=== PATIENT | female | born 1950 | race Caucasian/White ===

== ENCOUNTER → 2017-07-14 | Outpatient (REF) | payer BC, MEDICARE | LOC: M LAB REF 13:23 | DX: N39.0 Urinary tract infection, site not specified (principal) | CPT/HCPCS: 87186 ==

== ENCOUNTER → 2017-09-04 | Outpatient (REF) | payer MEDICARE, BC ==
[2017-09-04 14:27] LABS: VITAMIN B12 LEVEL 290 PG/ML
[2017-09-04 14:38] LABS: FERRITIN 189 NG/ML (8-252); IRON (FE) 64 UG/DL (50-170); PERCENT SATURATION 21.7 % (13.2-45.0); TOTAL IRON BINDING CAPACITY 295 UG/DL (250-450); TOTAL PROTEIN 7.8 GM/DL (6.4-8.2)
[2017-09-04 15:04] LABS: SLIDE REVIEW Report; SOURCE PERIPHERAL SMEAR
[2017-09-04 15:05] LABS: REASON FOR REVIEW ANEMIA / RBC MORPH
[2017-09-04 15:48] LABS: ERYTHROCYTE SEDIMENTATION RATE 79 mm/hr (0-30)
[2017-09-06 13:04] LABS: ALBUMIN 3.96 GM/DL (3.29-5.55); ALBUMIN % 50.8 % (55.8-66.1); ALPHA-1-GLOBULINS 0.39 GM/DL (0.17-0.41); ALPHA-2-GLOBULINS 0.81 GM/DL (0.42-0.99); ALPHA-2-GLOBULINS % 10.4 % (7.1-11.8); BETA-1-GLOBULINS 0.52 GM/DL (0.28-0.60); BETA-1-GLOBULINS % 6.7 % (4.7-7.2); BETA-2-GLOBULINS 0.55 GM/DL (0.19-0.55); BETA-2-GLOBULINS % 7.1 % (3.2-6.5); GAMMA GLOBULINS 1.56 GM/DL (0.65-1.58)
[2017-09-07 08:11] LABS: ANTINUCLEAR ANTIBODIES DIRECT Negative (Negative)
[2017-09-07 08:11] LABS: HAPTOGLOBIN 185 mg/dL (34-200)
== END ==
LOC: M LAB REF 13:38
DX: D64.9 Anemia, unspecified (principal); D69.6 Thrombocytopenia, unspecified
CPT/HCPCS: 82746

== ENCOUNTER 2017-10-26 10:59 | Day surgery (SDC) | payer MEDICARE, BC ==
[2017-10-26] MEDS: NS 1,000 ML IV (11:00)
[2017-10-26] MEDS ORDERED: PROPOFOL 200 MG/20 ML VIAL As Ordered ×2 (11:31→12:32)
== END 2017-10-26 13:28 | disposition home or self-care (01) ==
LOC: M OPP 10:59
DX: D50.9 Iron deficiency anemia, unspecified (principal); K62.5 Hemorrhage of anus and rectum; D12.5 Benign neoplasm of sigmoid colon; K64.8 Other hemorrhoids; K57.30 Diverticulosis of large intestine without perforation or abscess without bleeding; K63.89 Other specified diseases of intestine; E78.5 Hyperlipidemia, unspecified; E11.9 Type 2 diabetes mellitus without complications; E03.9 Hypothyroidism, unspecified; K57.32 Diverticulitis of large intestine without perforation or abscess without bleeding; R06.83 Snoring; N18.9 Chronic kidney disease, unspecified; Z85.42 Personal history of malignant neoplasm of other parts of uterus; F17.210 Nicotine dependence, cigarettes, uncomplicated; Z79.4 Long term (current) use of insulin; Z79.899 Other long term (current) drug therapy; Z80.42 Family history of malignant neoplasm of prostate; Z80.1 Family history of malignant neoplasm of trachea, bronchus and lung; Z80.52 Family history of malignant neoplasm of bladder
CPT/HCPCS: 45385

== ENCOUNTER → 2018-11-02 | Outpatient (CLI) | payer MEDICARE, BC ==
[~2018-11-02] MED LIST: APIDINJ2 SC; B-12100021 PO; GLIP5TAB20 PO; JANU100T PO; KLOR20TA42 PO; LANTINJ4 SC; LEVO25TA5 PO; LISI10TA4 PO; METF-839 PO; NICO21DI9 TOP; PIOG1TAB36 PO; SIMV10TA2 PO; TOPA1TAB PO; TRUL10IN SC; UROCTAB3 PO; VALT500T PO
--- NOTE | 2018-11-02 09:03 | REP ---
Complete abdominal sonography: History: Abdominal bloating. Anemia. Increased alkaline phosphatase. Findings: Scanning through the abdomen demonstrates multiple echogenic foci along the posterior wall of the gallbladder without evidence of shadowing or mobility. These may be polyps or small stones. Gallbladder wall is not thickened. The gallbladder is somewhat elongate measuring 9.7 cm in greatest diameter consistent with mild dilation. No pericholecystic fluid is seen. The common bile duct is normal measuring 0.5 cm in greatest diameter. There is evidence of some fatty infiltration of the liver with areas of fat sparing near the gallbladder. The liver has a 18 cm vertical midclavicular span consistent with mild hepatomegaly. No focal liver lesion is seen. Limited views of the pancreas show no abnormality. There is a splenule in the left upper quadrant measuring 1.4 cm in greatest diameter. The spleen is not enlarged measuring 8.1 cm. It is homogeneous. Renal cortical echogenicity pattern is normal and contours are smooth bilaterally. 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 No other renal abnormality. Right kidney measures 10.9 x 5.7 x 5.5 cm. Left renal dimensions are 10.1 x 4.4 x 4.7 cm. There is a distal aortic aneurysm measuring 3.4 cm in anteroposterior dimension just above the bifurcation. The remainder the aorta is normal in caliber. Impression: 1. Small stones versus polyps in the gallbladder. Mildly dilated gallbladder. 2. Fatty infiltration. Mild hepatomegaly. 3. Small splenule in the left upper quadrant. 4. 3.4 cm infrarenal abdominal aortic aneurysm. Electronically Signed by Dmitriy Callaway MD 11/02/2018 02:45 P
== END ==
LOC: M RAD 07:11
PROVIDERS: ATTEND Internal Medicine Hematology & Oncology
DX: K80.20 Calculus of gallbladder without cholecystitis without obstruction (principal); K76.0 Fatty (change of) liver, not elsewhere classified; I71.4 Abdominal aortic aneurysm, without rupture; R14.0 Abdominal distension (gaseous)

== ENCOUNTER 2018-11-03 10:50 | Inpatient (IN) | payer MEDICARE, BC ==
[~2018-11-03] VITALS: Ht 160 cm; Wt 69.8 kg
[~2018-11-03 10:50] MED LIST changes: -APIDINJ2 SC; -LANTINJ4 SC
[2018-11-03 11:58] LABS: BASO # 0.1 10^3/uL (0.0-0.2); BASO % 0.6 % (0.0-1.0); EOS # 0.2 10^3/uL (0.0-0.50); EOS % 1.7 % (0.0-3.0); HEMATOCRIT 36.4 % (36.0-47.0); HEMOGLOBIN 11.9 g/dl (12.0-15.5); LYMPH # 4.1 10^3/uL (1.5-4.5); LYMPH % 46.3 % (24.0-44.0); MEAN CORPUSCULAR HEMOGLOBIN 34.5 pg (27.0-33.0); MEAN CORPUSCULAR HGB CONC 32.7 g/dl (32.0-36.5); MEAN CORPUSCULAR VOLUME 105.5 fl (80.0-96.0); MONO # 0.5 10^3/uL (0.0-0.8); MONO % 5.7 % (0.0-5.0); NEUTROPHILS % 45.4 % (36.0-66.0); PLATELET COUNT, AUTOMATED 154 10^3/uL (150-450); RED BLOOD COUNT 3.45 10^6/uL (4.00-5.40); WHITE BLOOD COUNT 8.8 10^3/uL (4.0-10.0)
[2018-11-03 12:19] LABS: ALBUMIN 3.6 GM/DL (3.2-5.2); ALT/SGPT 43 U/L (12-78); BILIRUBIN,DIRECT 0.1 MG/DL (0.0-0.2); BILIRUBIN,TOTAL 0.4 MG/DL (0.2-1.0); BLOOD UREA NITROGEN 17 MG/DL (7-18); CALCIUM LEVEL 9.3 MG/DL (8.8-10.2); CARBON DIOXIDE LEVEL 28 MEQ/L (21-32); CHLORIDE LEVEL 104 MEQ/L (98-107); CREATININE FOR GFR 0.85 MG/DL (0.55-1.30); GLOMERULAR FILTRATION RATE > 60.0 (>45); GLUCOSE, FASTING 175 MG/DL (70-100); LIPASE 1049 U/L (73-393); POTASSIUM SERUM 4.2 MEQ/L (3.5-5.1); SODIUM LEVEL 138 MEQ/L (136-145); TOTAL PROTEIN 8.1 GM/DL (6.4-8.2)
[2018-11-03] MEDS ORDERED: ISOVUE-370 76% 100ML VIAL (Q9967) As Ordered ONE (12:25)
--- NOTE | 2018-11-03 14:11 | REP ---
CT ABDOMEN AND PELVIS WITH IV BUT WITHOUT ORAL CONTRAST: HISTORY: Left upper quadrant abdominal pain. Evaluate for pancreatitis. CT CONTRAST DOSE: 100 mL of intravenous Isovue 370. CT FINDINGS: Preliminary digital backend java developer radiograph shows an unremarkable bowel gas pattern. The lung bases show calcific pleural plaquing bilaterally consistent with previous asbestos exposure. Lung bases are otherwise clear. There is mild diffuse fatty infiltration of the liver. The liver is felt to be mildly enlarged as well. Its craniocaudal span in the midclavicular line is 22 cm. No focal hepatic lesion is seen. There are two tiny faintly calcific opacities in the dependent portion of the gallbladder consistent with gallstones. No other gallbladder abnormality is seen. No adrenal lesion is seen. The spleen is unremarkable. There is an accessory splenule inferiorly. No pancreatic mass or cyst is seen. The main pancreatic duct is slightly prominent measuring 4 mm in greatest diameter. There is bilateral infrarenal nephrolithiasis. No hydronephrosis is seen. The largest intrarenal calculus is in the upper pole of the right kidney measuring 4 mm in greatest diameter. There is an infrarenal abdominal aortic aneurysm, which measures about 3.3 cm in greatest anteroposterior dimension. No vicky aneurysmal fibrosis or hemorrhage is seen. There is extensive diverticulosis affecting the sigmoid colon without CT evidence of diverticulitis. Moderate stool is visible throughout the colon. There is a diverticulum in the right colon. The appendix is surgically absent. The uterus is surgically absent. Urinary bladder is unremarkable. No abdominal wall defect is seen. IMPRESSION: 1. Hepatomegaly and fatty infiltration of the liver. 2. Tiny gallstones suspected. 3. Mildly prominent pancreatic duct. Otherwise unremarkable pancreas. 4. Infrarenal abdominal aortic aneurysm, 3.3 cm in AP dimension. 5. Bilateral intrarenal nephrolithiasis without hydronephrosis. 6. Left colonic diverticulosis without diverticulitis. Electronically Signed by Dmitriy Callaway MD 11/03/2018 03:31 P
[2018-11-03] MEDS ORDERED: ONDANSETRON 4MG/2ML VIAL (J2405) IV ONE (14:30)
[2018-11-03] MEDS ORDERED: MORPHINE 2 MG/ML 1ML SYRINGE (J2270) IV ONE (14:30)
[2018-11-03] MEDS ORDERED: LANTINJ4 SC (15:09)
[2018-11-03] MEDS ORDERED: APIDINJ2 SC (15:09)
[2018-11-03 15:38] LABS: CHOLESTEROL LEVEL 191 MG/DL (<200); HDL CHOLESTEROL 57 MG/DL (>40); LDL CHOLESTEROL 94 MG/DL (<100); NON-HDL-C 134 MG/DL; TRIGLYCERIDES LEVEL 199 MG/DL (<150)
[2018-11-03] MEDS ORDERED: TOPIRAMATE (TopAMAX) 25 MG TAB PO PRN (15:45)
[2018-11-03] MEDS ORDERED: DEXTROSE 50% 50 ML SYRINGE IV PRN (15:45)
[2018-11-03] MEDS ORDERED: MORPHINE 4 MG/ML 1ML VIAL/SYRINGE (J2270) IV PRN (15:45)
[2018-11-03] MEDS ORDERED: GLUCAGON FOR INJ 1 MG VIAL (J1610) SC PRN (15:45)
[2018-11-03] MEDS ORDERED: GLUCOSE 4 GM CHEW TABLET PO PRN (15:45)
[2018-11-03] MEDS ORDERED: ONDANSETRON 4MG/2ML VIAL (J2405) IV PRN (16:15)
[2018-11-03 17:37] VITALS: BP 120/67
[2018-11-03] MEDS: HumaLOG INSULIN (NovoLOG) PER UNIT SC SCH ×2 (18:00→23:43)
[2018-11-03] MEDS: NS 1,000 ML IV SCH (18:00)
--- NOTE | 2018-11-03 18:06 | HPE ---
DATE OF ADMISSION: 11/03/2018 PRIMARY CARE PROVIDER: Dr. Carmen Borges HISTORY OF PRESENT ILLNESS: This patient is a 68-year-old female with a past medical history significant for diabetes, dyslipidemia, hypertension, history of diverticulitis, anemia with thrombocytopenia, presented to [facility] on November 03, 2018 with complaint of abdominal pain. The patient had a history of pancreatis. The patient was hospitalized in [facility] from October 09 to October 16. The patient had a endoscopic retrograde cholangiopancreatography (ERCP) performed at that time and the patient was told that there was no significant findings. Later, the patient signed herself against medical advice (AMA) because she could not get the HIDA scan done in a timely fashion. She went to [facility] to get the HIDA scan performed; and according to the patient, the patient has an obstruction of the cystic duct. The patient was later referred to Dr. Aguirre for elective cholecystectomy. The patient started having the abdominal pain in the mid epigastric region. Pain is aching and sharp in nature, persistent with radiation to the back. The patient has had poor oral intake due to poor appetite and the persistent pain. Denies any significant alcohol history. The patient did have a recent adjustment of her diabetic medications. According to the patient, the adjustments were made to avoid recurrence of the pancreatitis. In the emergency room, the patient was found to have elevated lipase level. PAST MEDICAL HISTORY: 1. Insulin-dependent diabetes. 2. Dyslipidemia. 3. Hypertension. 4. History of diverticulitis. 5. Anemia with thrombocytopenia. 6. History of endometrial cancer, status post hysterectomy. PAST SURGICAL HISTORY: 1. Appendectomy in 1970s. 2. Total hysterectomy for history of endometrial cancer. 3. Tubal ligation. ALLERGIES: None. SOCIAL HISTORY: The patient quit smoking in October 09. Drinks alcohol very rarely. Denied recreational drug use. REVIEW OF SYSTEMS: GENERAL: No fever, no chills. HEENT: No vision changes. No auditory changes. CARDIOVASCULAR: Denied any chest pain or palpitations. RESPIRATORY: Denied any shortness of breath, wheezes or sputum production. GASTROINTESTINAL (GI): Acute dull achy type of abdominal pain with radiation to the back that started yesterday night. The patient has a history of pancreatitis in the past. MUSCULOSKELETAL: Denied any muscle pain or joint pain. NEUROLOGICAL: Denied any numbness or tingling. OBJECTIVE: VITAL SIGNS: Temperature is 97.4, pulse is 92, respirations 20, blood pressure 122/74, pulse oximetry 96% on room air. GENERAL: Mild distress, fatigue, alert and awake. HEENT: Normocephalic, atraumatic. Extraocular motor grossly intact. CARDIOVASCULAR: Positive S1, S2, regular rate. LUNGS: Clear to auscultation bilaterally. ABDOMEN: Decreased bowel sounds. Tenderness to palpation in the mid epigastric region and left upper abdomen. No rebound. EXTREMITIES: No edema. NEUROLOGICAL: Sensation to fine touch grossly intact. Muscle strength 5/5. LABORATORY DATA: White blood count (WBC) 8.8, hemoglobin 11.9, hematocrit 36.4, platelet count is 154. Sodium is 138, potassium 4.2, chloride 104, carbon dioxide 24, BUN 17, creatinine 0.85, glomerular filtration rate (GFR) greater than 65, fasting glucose 175, lactic acid 1.6, calcium 9.3, total bilirubin is 0.4, direct bilirubin is 0.1. AST 29, ALT 43, alkaline phosphatase of 179. Total protein is 8.1, albumin 3.6. IMAGING STUDY: Abdominal ultrasound from November 02, 2018 demonstrates a small stone versus polyp in the gallbladder. Mildly dilated gallbladder. Fatty infiltrate. Mild hepatomegaly. Small splenule in the left upper quadrant. 3.4 cm infrarenal abdominal aortic aneurysm. CT abdomen and pelvis with IV contrast on November 03, 2018 showed hepatomegaly with fatty infiltrate of the liver. Tiny gallstone suspected. Mildly prominent pancreatic duct. Infrarenal abdominal aortic aneurysm, 3.3 cm in AP diameter. Bilateral intrarenal nephrolithiasis without hydronephrosis. Left colonic diverticulosis without diverticulitis. ASSESSMENT AND PLAN: 1. Recurrent pancreatitis. The patient admitted on the medical surgical floor on the inpatient status. The patient was placed on by mouth instead of IV fluid. The patient will be on IV morphine for pain control. The patient denies any significant alcohol history. Follow with the lipid profile. CT abdomen and the pelvis and abdominal ultrasound performed, the patient was found to have gallstones. The patient had a recent endoscopic retrograde cholangiopancreatography (ERCP) performed in the [facility]. According to the patient, there are no significant findings. The patient also had a HIDA scan performed in the [facility]. The patient was informed there is a blockage in the cystic duct. The patient originally had a cholecystectomy with Dr. Aguirre on December 03, 2017. 2. Diabetes on fluid support by mouth, sliding scale. 3. Dyslipidemia. Follow with lipid panel on Zocor. 4. Hypothyroidism on Synthroid. Follow with thyroid simulating hormone (TSH). 5. Hypertension. Blood pressure in the satisfactory range on lisinopril. 6. History of diverticulitis. CT image was performed. The patient was found to have left colonic diverticulosis without diverticulitis. 7. History of endometrial cancer, status post total hysterectomy. 8. Anemia with thrombocytopenia. The patient is being followed with Dr. Rebollar in the outpatient setting. 9. Deep vein thrombosis (DVT) prophylaxis on heparin.
[2018-11-03] MEDS: HEPARIN SOD (PORCINE) 5000 UNITS/ML VIAL SC SCH ×2 (18:59→21:37)
[2018-11-03] MEDS: SIMVASTATIN 10 MG TAB PO SCH (21:37)
[2018-11-03 22:00] VITALS: BP 113/65
[2018-11-04] MEDS ORDERED: NICOTINE 21MG/24HR 1 EA TRANSDERMAL TD PRN
[2018-11-04] MEDS: NS 1,000 ML IV SCH ×3 (02:26→16:38)
[2018-11-04] MEDS: LEVOTHYROXINE 25MCG TABLET (0.025MG) PO SCH (05:55)
[2018-11-04] MEDS: HumaLOG INSULIN (NovoLOG) PER UNIT SC SCH ×3 (05:56→17:23)
[2018-11-04] MEDS: HEPARIN SOD (PORCINE) 5000 UNITS/ML VIAL SC SCH ×3 (05:56→20:52)
[2018-11-04 06:00] VITALS: BP 111/63
[2018-11-04 06:25] LABS: HEMATOCRIT 30.5 % (36.0-47.0); MEAN CORPUSCULAR HGB CONC 32.5 g/dl (32.0-36.5); MEAN CORPUSCULAR VOLUME 104.8 fl (80.0-96.0); PLATELET COUNT, AUTOMATED 131 10^3/uL (150-450); RED BLOOD COUNT 2.91 10^6/uL (4.00-5.40); WHITE BLOOD COUNT 6.4 10^3/uL (4.0-10.0)
[2018-11-04 06:38] LABS: HEMOGLOBIN 9.9 g/dl (12.0-15.5)
[2018-11-04 06:39] LABS: HEMOGLOBIN A1c 8.3 %
[2018-11-04 06:56] LABS: BLOOD UREA NITROGEN 16 MG/DL (7-18); CALCIUM LEVEL 8.6 MG/DL (8.8-10.2); CARBON DIOXIDE LEVEL 27 MEQ/L (21-32); CHLORIDE LEVEL 108 MEQ/L (98-107); CREATININE FOR GFR 0.83 MG/DL (0.55-1.30); GLOMERULAR FILTRATION RATE > 60.0 (>45); GLUCOSE, FASTING 127 MG/DL (70-100); LIPASE 541 U/L (73-393); MAGNESIUM LEVEL 1.9 MG/DL (1.8-2.4); POTASSIUM SERUM 4.3 MEQ/L (3.5-5.1); SODIUM LEVEL 141 MEQ/L (136-145)
[2018-11-04] MEDS: LISINOPRIL 10 MG TAB PO SCH (08:32)
[2018-11-04] MEDS: NICOTINE 21MG/24HR 1 EA TRANSDERMAL TD SCH (10:50)
[2018-11-04] MEDS ORDERED: ACETAMINOPHEN TAB 650MG DOSE (2X325MG) PO PRN (12:30)
[2018-11-04 13:10] VITALS: BP 120/67
[2018-11-04 14:00] VITALS: BP 111/64
[2018-11-04] MEDS: SIMVASTATIN 10 MG TAB PO SCH (20:51)
[2018-11-04] MEDS ORDERED: HumaLOG INSULIN (NovoLOG) PER UNIT SC SCH (21:00)
--- NOTE | 2018-11-04 21:33 | IPN ---
DATE: 11/04/2018 SUBJECTIVE: The patient is seen and examined in the room today. The patient stated that her abdominal discomfort showed significant improvement. The patient would like to start a clear liquid diet and advance as tolerated. The patient admitted that after the last pancreatitis attack that she has consumed some fatty meals. She states that she will try to adjust her diet pattern to avoid greasy foods now. OBJECTIVE: VITAL SIGNS: Temperature is 97.9, pulse is 63, respirations 18, blood pressure 111/63, pulse oximetry 98% on room air. GENERAL: No sign of acute distress. The patient is alert and awake and oriented. HEENT: Normocephalic, atraumatic. Extraocular motors are grossly intact. CARDIOVASCULAR: Positive S1, S2. Regular rate. LUNGS: Clear to auscultation bilaterally. ABDOMEN: Soft, nontender. Bowel sounds present. Still some discomfort to palpation in the mid epigastric region but improved compared to yesterday. EXTREMITIES: No edema. LABORATORY DATA: WBC is 6.4, hemoglobin 9.9, hematocrit 38.5, platelet count is 131. Sodium is 141, potassium 4.3, chloride 108, carbon dioxide 27, BUN 16, creatinine 0.83, GFR greater than 60, fasting glucose 127. A1/c is 8.3, calcium 8.6, magnesium 1.9, lipase is 541, free T4 is 1.2. ASSESSMENT AND PLAN: 1. Recurrent pancreatitis. The patient will try to advance diet. If the patient tolerates a diet we will discontinue the IV fluids. The patient has less requirement for pain medication. The patient has scheduled elective cholecystectomy with Dr. Aguirre on 12/03/2018. 2. Diabetes. On sliding scale, adjusted as needed. 3. Dyslipidemia. Continue on Zocor. 4. Hypothyroidism. On Synthroid. Normal Free T4. 5. Hypertension. On Lisinopril. 6. History of diverticulitis. CT scan showed the patient has diverticulosis without diverticulitis. 7. History of endometrial cancer, status post total hysterectomy. 8. Anemia with thrombocytopenia. The patient will follow with Dr. Rebollar in the outpatient setting. 9. Deep vein thrombosis (DVT) prophylaxis. On heparin.
[2018-11-04 22:00] VITALS: BP 123/63
[2018-11-05] MEDS: HEPARIN SOD (PORCINE) 5000 UNITS/ML VIAL SC SCH (05:24)
[2018-11-05] MEDS: LEVOTHYROXINE 25MCG TABLET (0.025MG) PO SCH (05:24)
[2018-11-05 05:25] LABS: HEMATOCRIT 29.2 % (36.0-47.0); HEMOGLOBIN 9.6 g/dl (12.0-15.5); MEAN CORPUSCULAR HEMOGLOBIN 34.7 pg (27.0-33.0); MEAN CORPUSCULAR HGB CONC 32.9 g/dl (32.0-36.5); MEAN CORPUSCULAR VOLUME 105.4 fl (80.0-96.0); PLATELET COUNT, AUTOMATED 120 10^3/uL (150-450); RED BLOOD COUNT 2.77 10^6/uL (4.00-5.40); WHITE BLOOD COUNT 5.7 10^3/uL (4.0-10.0)
[2018-11-05 05:43] LABS: BLOOD UREA NITROGEN 13 MG/DL (7-18); CALCIUM LEVEL 8.3 MG/DL (8.8-10.2); CARBON DIOXIDE LEVEL 27 MEQ/L (21-32); CHLORIDE LEVEL 109 MEQ/L (98-107); CREATININE FOR GFR 0.76 MG/DL (0.55-1.30); GLOMERULAR FILTRATION RATE > 60.0 (>45); GLUCOSE, FASTING 166 MG/DL (70-100); LIPASE 696 U/L (73-393); MAGNESIUM LEVEL 1.8 MG/DL (1.8-2.4); SODIUM LEVEL 140 MEQ/L (136-145)
[2018-11-05 06:00] VITALS: BP 116/60
[2018-11-05] MEDS ORDERED: HumaLOG INSULIN (NovoLOG) PER UNIT SC SCH (07:30)
[2018-11-05 07:52] VITALS: BP 116/60
[2018-11-05] MEDS: LISINOPRIL 10 MG TAB PO SCH (07:52)
[2018-11-05] MEDS: NICOTINE 21MG/24HR 1 EA TRANSDERMAL TD SCH (07:52)
--- NOTE | 2018-11-05 16:56 | DSES ---
DATE OF ADMISSION: 11/03/2018 DATE OF DISCHARGE: 11/05/2018 CONSULTANTS: None. PRIMARY CARE PROVIDER: Dr. Borges DISCHARGE DIAGNOSES: 1. Recurrent pancreatitis. 2. Diabetes. 3. Dyslipidemia. 4. Hypothyroidism. 5. Hypertension. 6. History of diverticulitis. 7. History of endometrial cancer, status post hysterectomy. 8. Anemia and thrombocytopenia. HOSPITALIZATION COURSE: The patient is a 68-year-old female who presented to [facility] on 11/03/2018 with a complaint of abdominal pain. The patient had a recent hospitalization in another facility in September for pancreatitis. HIDA scan was performed in the other facility. The patient was found to have obstruction of the cystic duct. The patient later had a referral to see general surgeon, Dr. Aguirre. The patient has scheduled elective cholecystectomy on 12/03/2018. The patient was admitted under the hospitalist service for recurrent pancreatitis. The patient was initially placed nothing by mouth and pain control with IV pain medications. The patient was started on fluid support. With conservative medical management, the patient showed significant improvement of her gastrointestinal symptoms. Later, diet was advanced as tolerated, and there was no recurrence of the pain. On 11/05/2018, the patient feels that she is almost back to her baseline and is determined stable for discharge with recommendations to followup with primary care provider in 1 week. The patient should with followup with Dr. Aguirre at the scheduled time for her cholecystectomy. The patient was advised to stay on low fat diet. OBJECTIVE: VITAL SIGNS: Temperature is 98.4, pulse 63, respirations 16, blood pressure 116/60, pulse oximetry is 93% on room air. LABORATORY DATA: On the day of discharge, WBC is 5.7, hemoglobin 9.6, hematocrit 29.2, platelet count is 120. Sodium is 140, potassium 4, chloride is 109, carbon dioxide is 27, BUN 13, creatinine 0.76, GFR greater than 60, fasting glucose 166, calcium 8.3, magnesium 1.8, lipase is 696. IMAGING STUDIES: CT of the abdomen and pelvis with IV contrast showed hepatomegaly and fatty infiltrate of the liver. Tiny gallstones suspected. Mildly prominent pancreatic duct. Intrarenal abdominal aortic aneurysm 3.3 cm in AP diameter. Bilateral infrarenal nephrolithiasis without hydronephrosis. Left colonic diverticulosis without diverticulitis. DISCHARGE MEDICATIONS: - vitamin B12 1000 mcg by mouth twice a day - Lantus 20 units subcutaneous at night - glulisine insulin subcutaneous daily - Levothyroxine 25 mcg by mouth daily - Lisinopril 10 mg by mouth daily - metformin 500 mg by mouth daily - glitazone 50 mg by mouth daily - potassium chloride 20 mEq by mouth twice a day - simvastatin 10 mg by mouth at night - Topamax 25 mg by mouth twice a day as needed for migraines DISCHARGE INSTRUCTIONS: Discontinue line, discharge home. Activity as tolerated. Consistent carbohydrate diet as tolerated. The patient should avoid high fat diet. The patient should followup with primary care provider in 1 week. The patient should followup with Dr. Aguirre at the scheduled time for elective cholecystectomy. Discharge condition is fair. Discharge time was greater than 30 minutes.
== END 2018-11-05 11:04 | disposition home or self-care (01) | DRG 440 ==
LOC: M ED 10:50 → M ED INP 15:37 → M MSPAV 17:18
PROVIDERS: ADMIT Internal Medicine; ATTEND Internal Medicine
DX: K85.90 Acute pancreatitis without necrosis or infection, unspecified (principal); E03.9 Hypothyroidism, unspecified; E11.9 Type 2 diabetes mellitus without complications; I10 Essential (primary) hypertension; E78.5 Hyperlipidemia, unspecified; D69.6 Thrombocytopenia, unspecified; Z79.899 Other long term (current) drug therapy; Z79.4 Long term (current) use of insulin; Z87.891 Personal history of nicotine dependence

== ENCOUNTER 2018-12-03 08:50 | Day surgery (SDC) | payer MEDICARE, BC ==
[~2018-12-03] VITALS: Ht 160 cm; Wt 67.6 kg
[~2018-12-03 08:50] MED LIST changes: +APIDINJ2 SC; +B-650TAB2 PO; +FOLI1TAB11 PO; +LANTINJ4 SC; +LIDOCAINE 1% MDV 20ML VIAL SQ PRN; +LR 1,000 ML IV ONE
[2018-12-03] MEDS ORDERED: MIDAZOLAM INJ 2 MG/2 ML VIAL (J2250) As Ordered ONE (10:06)
[2018-12-03] MEDS ORDERED: dexameTHASONE 4 MG/ML 1ML VIAL (J1100) As Ordered ONE (10:06)
[2018-12-03] MEDS ORDERED: ONDANSETRON 4MG/2ML VIAL (J2405) As Ordered ONE (10:06)
[2018-12-03] MEDS ORDERED: LIDOCAINE 2% INJ 100 MG/5 ML SDV (FOR ANES.) As Ordered ONE (10:06)
[2018-12-03] MEDS ORDERED: PROPOFOL 200 MG/20 ML VIAL As Ordered ONE (10:06)
[2018-12-03] MEDS ORDERED: ROCURONIUM BROMIDE 50 MG/5 ML VIAL As Ordered ONE (10:06)
[2018-12-03] MEDS ORDERED: fentaNYL 100 MCG/2 ML INJECTION (J3010) As Ordered ONE (10:06)
[2018-12-03] MEDS ORDERED: ONDANSETRON 4MG/2ML VIAL (J2405) IV PRN ×2 (10:15→13:00)
[2018-12-03] MEDS ORDERED: fentaNYL 100 MCG/2 ML INJECTION (J3010) IV PRN ×2 (10:15→13:00)
[2018-12-03] MEDS ORDERED: HYDROMORPHONE HCL 0.5 MG/ 0.5 ML SYRINGE (J1170 PER 1) IV PRN ×2 (10:15→13:00)
[2018-12-03] MEDS ORDERED: LR 1,000 ML IV SCH ×2 (10:15→13:00)
[2018-12-03] MEDS ORDERED: PERCOCET 5MG/325MG TAB PO PRN ×2 (10:15→13:00)
[2018-12-03] MEDS ORDERED: SCOPOLAMINE 1MG TRANSDERMAL PATCH TOP ONE (10:15)
[2018-12-03] MEDS ORDERED: METOCLOPRAMIDE INJ 10MG/2ML VIAL (J2765) As Ordered ONE (11:54)
[2018-12-03] MEDS ORDERED: PHENYLephrine HCL 500 MCG/5 ML (100MCG/ML) SYRINGE (J2370) As Ordered ONE (12:00)
[2018-12-03] MEDS ORDERED: ePHEDrine SULFATE 25 MG/5 ML(5MG/ML) SYRINGE As Ordered ONE (12:00)
[2018-12-03] MEDS ORDERED: KETAMINE HCL 200 MG/20 ML VIAL As Ordered ONE (12:04)
[2018-12-03] MEDS ORDERED: SUGAMMADEX SODIUM 500 MG/5 ML VIAL (BRIDION) As Ordered ONE (12:08)
[2018-12-03] MEDS ORDERED: HYDROmorphone HCL 2 MG/ML 1ML VIAL (J1170) As Ordered ONE (12:12)
[2018-12-03] MEDS ORDERED: KETOROLAC 60 MG/2 ML VIAL (J1885) As Ordered ONE (12:13)
[2018-12-03] MEDS ORDERED: BUPIVACAINE/EPIN 0.25% 30 ML VIAL As Ordered ONE (12:47)
[2018-12-03] MEDS ORDERED: NORCO, ANEXSIA 5/325MG TABLET (HYDROcodone/ACETAMINOPHEN) PO PRN (13:00)
--- NOTE | 2018-12-03 15:13 | RO ---
DATE OF PROCEDURE: 12/03/2018 PREOPERATIVE DIAGNOSIS: Chronic cholecystitis. POSTOPERATIVE DIAGNOSIS: Chronic cholecystitis. PROCEDURE: Laparoscopic cholecystectomy. SURGEON: Dr. Ortega Aguirre ASSIST: None. ANESTHESIA: General: ESTIMATED BLOOD LOSS: 5 mL. COMPLICATIONS: None. INDICATIONS FOR PROCEDURE: Patient is a 68-year-old female who presents with right upper quadrant pain, found to have chronic cholecystitis. Recommendation is to proceed with laparoscopic, possible open cholecystectomy. Risks, benefits of the procedure not limited to, but including, bleeding, infection, hernia formation, damage to surrounding structure, need for further surgery, were discussed in detail with the patient. Informed consent was obtained. Procedure was planned. DESCRIPTION OF PROCEDURE: Patient was brought back to operating room 3. After sufficient sedation, the abdomen was sterilely prepped and draped. Next, time-out was done to confirm proper patient, proper procedure. Following that, a stab incision made in left upper quadrant. Veress needle inserted, and the abdomen was insufflated to 15 mmHg. Next, a 5 mm Optiview port was used to gain access to the abdomen supraumbilically in the midline. Once the abdomen was entered, Veress needle site was examined. There were no signs of any injury. Veress needle was then removed. 11 mm port was then placed subxiphoid, two 5 mm ports in the right upper quadrant. The fundus of gallbladder was elevated up in the air. Cystic duct and cystic artery were both identified and dissected free with blunt dissection. They were both then doubly clipped and cut. Gallbladder was removed from gallbladder fossa with electrocautery and then brought out through the subxiphoid port site in a 10 mm EndoCatch bag. Abdomen was then examined to confirm hemostasis. It was desufflated. Skin incisions were closed with #4-0 Vicryl subcuticular sutures. The abdomen was cleaned and dried. Steri-Strips, 4x4, and tape were applied, thus ending procedure.
[2018-12-03 15:45] VITALS: BP 135/66
== END 2018-12-03 15:50 | disposition home or self-care (01) ==
LOC: M SDC 08:50
PROVIDERS: ATTEND Surgery
DX: K80.18 Calculus of gallbladder with other cholecystitis without obstruction (principal); I10 Essential (primary) hypertension; E78.5 Hyperlipidemia, unspecified; J44.9 Chronic obstructive pulmonary disease, unspecified; E11.9 Type 2 diabetes mellitus without complications; E03.9 Hypothyroidism, unspecified; D64.9 Anemia, unspecified; Z79.84 Long term (current) use of oral hypoglycemic drugs; Z79.4 Long term (current) use of insulin; Z79.899 Other long term (current) drug therapy; Z85.42 Personal history of malignant neoplasm of other parts of uterus; F17.210 Nicotine dependence, cigarettes, uncomplicated
CPT/HCPCS: 47562; 88304; J1100; J1170; J1885; J2250; J2370; J2405; J2765; J3010

== ENCOUNTER 2019-08-30 16:27 | Inpatient (IN) | payer MEDICARE, BC ==
[~2019-08-30] VITALS: Ht 160 cm; Wt 67.2 kg
[~2019-08-30 16:27] MED LIST changes: -LIDOCAINE 1% MDV 20ML VIAL SQ PRN; -LR 1,000 ML IV ONE; -SIMV10TA2 PO; +SIMV10TA21 PO
[2019-08-30 19:00] VITALS: BP 167/76
[2019-08-30] MEDS ORDERED: DEXTROSE 50% 50 ML SYRINGE IV PRN (19:15)
[2019-08-30] MEDS ORDERED: ACETAMINOPHEN TAB 650MG DOSE (2X325MG) PO PRN (19:15)
[2019-08-30] MEDS ORDERED: MOM 30ML SUSPENSION UDC PO PRN (19:15)
[2019-08-30] MEDS ORDERED: MAALOX 30 ML SUSP *UDC PO PRN (19:15)
[2019-08-30] MEDS ORDERED: GLUCAGON FOR INJ 1 MG VIAL (J1610) SC PRN (19:15)
[2019-08-30] MEDS ORDERED: GLUCOSE 4 GM CHEW TABLET PO PRN (19:15)
[2019-08-30 20:15] LABS: HEMATOCRIT 30.3 % (36.0-47.0); HEMOGLOBIN 9.8 g/dl (12.0-15.5); MEAN CORPUSCULAR HEMOGLOBIN 33.1 pg (27.0-33.0); MEAN CORPUSCULAR HGB CONC 32.3 g/dl (32.0-36.5); MEAN CORPUSCULAR VOLUME 102.4 fl (80.0-96.0); RED BLOOD COUNT 2.96 10^6/uL (4.00-5.40); WHITE BLOOD COUNT 12.2 10^3/uL (4.0-10.0)
[2019-08-30 20:32] LABS: PLATELET COUNT, AUTOMATED 99 10^3/uL (150-450)
[2019-08-30 20:35] LABS: BLOOD UREA NITROGEN 13 MG/DL (7-18); CALCIUM LEVEL 8.5 MG/DL (8.8-10.2); CARBON DIOXIDE LEVEL 27 MEQ/L (21-32); CHLORIDE LEVEL 103 MEQ/L (98-107); CREATININE FOR GFR 0.82 MG/DL (0.55-1.30); GLOMERULAR FILTRATION RATE > 60.0 (>45); GLUCOSE, FASTING 106 MG/DL (70-100); POTASSIUM SERUM 4.3 MEQ/L (3.5-5.1); SODIUM LEVEL 136 MEQ/L (136-145)
[2019-08-30] MEDS: DOCUSATE SODIUM 100 MG CAP PO SCH (21:00)
[2019-08-30] MEDS ORDERED: HumaLOG INSULIN (NovoLOG) PER UNIT SC SCH (21:00)
[2019-08-30 21:08] VITALS: BP 132/67
--- NOTE | 2019-08-30 21:17 | IPNPDOC ---
Text Note Date of Service The patient was seen on 08/30/19. NOTE TIME OF SERVICE 9:45PM 1Ms.Alona is a 69 yr old w a PMH of DM, CKD3, HTN, Thyroid CA, and history of treated stage I endometrial CA who was transferred to r/o PE as the cause of her dyspnea. Based on preliminary studies at [place]. Her hemoglobin and platelet count were low. Her d-dimer was elevated and left lower extremity ultrasound was negative for DVT. She says her shortness of breath began suddenly this morning and she cannot identify any aggravating or alleviating factors. She has been told that she has COPD based on studies, but has not had formal testing. She is also having right lower extremity pain and swelling. GEN: well nourished / well developed/ affect INTEGUMENT: She does not facial plethora facial plethora HEENT:NCAT / lips are not cyanotic / trachea midline / NC in place / maximal laryngeal height is >4cm / mucus membranes moist and pink CVS: RRR /right lower extremity edema LUNGS: breath sounds are diminished/ forced expiratory time is > 9 sec MSK/EXTREMITIES: finger nail clubbing 1. Dyspnea Differential includes PE vs Bronchitis/COPD Plan: f/u CTA to r/o PE / solumedrol, nebs and albuterol 2. RLE swelling - Plan: pending CT results the day time team can decide if repeat US is warranted as the first test may have been a false negative Rest per 's note VS,Fishbone, I+O VS, Fishbone, I+O Laboratory Tests 08/30/19 20:00 Vital Signs Date Time Temp Pulse Resp B/P (MAP) Pulse Ox O2 Delivery O2 Flow Rate FiO2 08/30/19 19:00 99.1 87 20 167/76 (106) 98 Nasal Cannula 2.0 GEORGES GIL MD Aug 30, 2019 21:17
[2019-08-30] MEDS ORDERED: ISOVUE-370 76% 100ML VIAL (Q9967) As Ordered ONE (21:44)
[2019-08-30] MEDS ORDERED: ALBUTEROL 90 MCG/ACT 8GM HFA INHALER INH PRN (22:00)
[2019-08-30] MEDS ORDERED: NICOTINE 14 MG/24 HR TRANSDERMAL TD SCH (22:00)
[2019-08-30] MEDS ORDERED: methylPREDNISolone INJ 125 MG/2 ML VIAL (J2930) IV STA (22:00)
--- NOTE | 2019-08-30 22:08 | HPEPDOC ---
[facility] Medical History & Physical Date of Admission Aug 30, 2019 Date of Service: Aug 30, 2019 Attending Physician: GEORGES GIL MD History and Physical CHIEF COMPLAINT: Dyspnea HISTORY OF PRESENT ILLNESS: Patient is a 69-year-old female who is a direct transfer from [facility] for dyspnea. Patient said around 11 AM, she had acute onset shortness of breath. Patient's family called the ambulance who found her to be hypoxic in the mid 80s. Patient recovered with 2 L of oxygen via nasal cannula. Patient was brought to the emergency department. A few days ago, patient developed right leg swelling with shortness of breath. A venous duplex ultrasound of her right lower extremity was negative and a CT angiogram of her chest was negative for PE. There was some concern that the patient and now have pulmonary embolism so the patient was transferred to [facility]. At rest, patient is comfortable on 2 L. Patient denies any pleuritic chest pain with deep inspiration. Patient says she is currently being treated for bacteria in her urine with Macrobid and this is the second time she is taking Macrobid and had difficulties with shortness of breath. REVIEW OF SYSTEMS: General: Patient denies fevers, chills, night sweats, unintentional weight loss HEENT: Patient denies headaches, changes in vision, sore throat. Cardiovascular: Patient denies chest pain, chest pressure, or palpitations Respiratory: Patient endorsed shortness of breath earlier today however, she does not have any on 2 L while resting. GI: Patient denies abdominal pain, nausea, vomiting, diarrhea : Patient denies pain or difficulty with urination Neurological: Patient endorses occasional numbness in right upper extremity Extremities: Patient endorses pain and swelling with muscle cramps in her right lower extremity Skin: Patient denies any rashes or lesions. Hematologic: Patient denies any easy bruising. Lymphatic: Patient denies any lumps in his neck, axilla, or groin. PAST MEDICAL HISTORY: 1. Diabetes mellitus. 2. Chronic kidney disease stage III. 3. Hyperlipidemia. 4. Hypertension 5. Endometrial cancer 6. AAA 7. Pancreatitis PAST SURGICAL HISTORY: 1. Hysterectomy. 2. appendectomy. 3. Cholecystectomy. 4. ERCP SOCIAL HISTORY: Patient is and lives with her . Patient is able to do all her ADLs. Patient smokes one half pack of cigarettes per day and denies alcohol or drug use. 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 HOME MEDICATIONS: Please see below. PHYSICAL EXAMINATION: VITAL SIGNS: Temperature 99.1, pulse 87, respiratory rate 20, blood pressure 167/76, pulse oximetry 98% 2 L via nasal cannula. General: Alert and oriented female patient who is lying in bed with nasal cannula oxygen in place. Patient has no acute distress. HEENT: Normocephalic, atraumatic, moist mucous membranes, posterior pharynx was nonerythematous, tympanic membranes are pearly-victoria without erythema. Neck: No lymphadenopathy, thyromegaly, or carotid bruits. Cardiac: Regular rate and rhythm, grade 2/6 systolic murmur heard loudest over the right second intercostal space. Pulm: Clear to auscultation bilaterally. No wheezes, rhonchi, rales Abd: Nondistended, nontender to palpation, normal bowel sounds Ext: Patient's right lower leg was slightly larger than left with no pitting edema Neuro: No gross neurological defects. Patient was able to move all 4 extremities on command. Skin: Skin of the arms, lower legs, abdomen, back, head and neck were examined did not show any evidence of rash or lesions. LABORATORY DATA: See below. IMAGING: CT angiogram of the chest is pending MICROBIOLOGY: Please see below. ASSESSMENT: Patient is a 69-year-old female who presented to the hospital in [place] with acute onset dyspnea. Patient was transferred to [facility] for further workup as patient recently had CT angiography and with her history of uterine cancer is that a high risk for pulmonary embolism. PLAN: 1. Dyspnea. CT angiogram of the chest has been ordered and is pending at this time. Patient had an elevated d-dimer at [facility] and was found to have hypoxia. She's recovered with 2 L. Patient is not tachycardic at this time however, CTA can be performed to rule out any pulmonary embolism. Patient was also found to be hypoxic on blood gas. Patient has risk factors such as smoking, female, history of malignancy. 2. Diabetes mellitus. Patient will be on fingersticks and sliding scale coverage. Metformin will be held as she is receiving IV contrast. 3. Possible urinary tract infection. Patient says she is being treated for bacteria in her urine. Patient denies any symptoms at this time. I will not continue treatment because this. Patient has a history of ESBL Escherichia coli. 4. Hypertension. We will continue patient's home medications. 5. Hyperlipidemia. We will continue the patient's home medications. 6. New onset murmur. Patient been told she has a murmur before. The murmur appears to be aortic stenosis. Echocardiogram has been ordered. 7. DVT prophylaxis: Once pulmonary embolism is ruled out, patient can be placed on Lovenox 40 mg daily. If the patient's found to have a pulmonary embolism, patient be fully anticoagulated 8. CODE STATUS: Full code Disposition: Patient will be admitted to the medical surgical floor on telemetry for further monitoring. We expect a greater than 2 midnights today. Laboratory Data Labs 24H Laboratory Tests 2 08/30/19 20:00: Nucleated Red Blood Cells % (auto) 0.0, Immature Platelet Fraction 3.6, Anion Gap 6L, Glomerular Filtration Rate > 60.0, Calcium Level 8.5L 08/30/19 21:37: Bedside Glucose (Misc Panel) 121H CBC/BMP Laboratory Tests 08/30/19 20:00 Home Medications Scheduled Cyanocobalamin (Vitamin B-12) (B-12) 1,000 Mcg Tablet, 1,000 MCG PO BID Folic Acid (Folic Acid) 1 Mg Tablet, 1 TAB PO DAILY Insulin Glargine,Hum.rec.anlog (Lantus Solostar) 100 Unit/1 Ml Insuln.pen, 20 UNITS SC QHS Insulin Glulisine (Apidra Solostar) 100 Unit/1 Ml Insuln.pen, 1 DOSE SC DAILY PER SLIDING SCALE AT LUNCHTIME Levothyroxine Sodium (Levothyroxine Sodium) 25 Mcg Tab, 25 MCG PO DAILY Lisinopril (Lisinopril) 10 Mg Tablet, 10 MG PO DAILY Metformin HCl (Metformin HCl) 500 Mg Tablet, 500 MG PO DAILY Pioglitazone HCl (Pioglitazone HCl) 15 Mg Tablet, 15 MG PO DAILY Potassium Chloride (Klor-Con M20) 20 Meq Tab.er.prt, 20 MEQ PO BID Prednisone (Prednisone) 10 Mg Tablet, 10 MG PO TAPER Take 4 tabs daily x 3 days, then 3 tabs daily x 3 days, then 2 tabs daily x 3 days, then 1 tab daily x 3 days and stop Pyridoxine HCl (Vitamin B6) (Vitamin B-6) 50 Mg Tablet, 1 TAB PO DAILY Simvastatin (Simvastatin) 10 Mg Tab, 10 MG PO QHS Scheduled PRN Topiramate (Topamax) 25 Mg Tablet, 25 MG PO BID PRN for MIGRAINE Allergies Coded Allergies: No Known Allergies (Unverified , 10/12/17) A-FIB/CHADSVASC A-FIB History Current/History of A-Fib/PAF?: No GME ATTESTATION GME ATTESTATION My faculty preceptor for this patient encounter was physically present during the encounter and was fully available. All aspects of the patient interview, examination, medical decision making process, and medical care plan development were reviewed and approved by the faculty preceptor. The faculty preceptor is aware and concurs with the plan as stated in the body of this note and will attest to such by his/her cosignature. ATTENDING NOTE See my addendum on 08/30/2019 I reviewed and edited the note and agree with the findings as documented. PRECIOUS FORD DO Aug 30, 2019 22:08 GEORGES GIL MD Sep 01, 2019 06:54
--- NOTE | 2019-08-30 22:56 | REPVR ---
PROCEDURE INFORMATION: Exam: CT Angiography Chest With Contrast Exam date and time: 08/30/2019 10:13 PM Age: 69 years old Clinical indication: Dyspnea; Additional info: R/O pe TECHNIQUE: Imaging protocol: Computed tomographic angiography of the chest with intravenous contrast. 3D rendering: MIP and/or 3D reconstructed images were created by the technologist. Radiation optimization: All CT scans at this facility use at least one of these dose optimization techniques: automated exposure control; mA and/or kV adjustment per patient size (includes targeted exams where dose is matched to clinical indication); or iterative reconstruction. Contrast material: ISOVUE 370; Contrast volume: 75 ml; Contrast route: IV; COMPARISON: No relevant prior studies available. FINDINGS: Pulmonary arteries: There are no pulmonary emboli. Aorta: The aorta demonstrates mild atherosclerotic calcification. There is no aortic dissection or aneurysm. Lungs: Moderate centrilobular emphysema most pronounced in the upper lung zones. Pleural space: Bilateral calcified and noncalcified pleural plaques most consistent with prior asbestos exposure. No pleural mass or fluid. Heart: Unremarkable. No cardiomegaly. No pericardial effusion. Lymph nodes: Unremarkable. No enlarged lymph nodes. Bones/joints: The spine demonstrates moderate degenerative changes. Diffuse decrease in bone mineralization consistent with osteoporosis or osteopenia. Soft tissues: Unremarkable. IMPRESSION: 1. Moderate centrilobular emphysema most pronounced in the upper lung zones. 2. Bilateral calcified and noncalcified pleural plaques most consistent with prior asbestos exposure. No pleural mass or fluid. 3. There is no aortic dissection or aneurysm. 4. There are no pulmonary emboli. Electronically signed by: Cosme Lopez On 08/30/2019 22:56:32 PM
[2019-08-31] MEDS: IPRATROPIUM 0.5MG/ALBUTEROL 2.5MG INH SOL UD 3ML (DUONEB)(J7620) NEB SCH ×3 (01:17→14:07)
[2019-08-31 02:00] VITALS: BP 122/64
[2019-08-31 06:00] VITALS: BP 101/53
[2019-08-31] MEDS: DOCUSATE SODIUM 100 MG CAP PO SCH (09:00)
[2019-08-31] MEDS ORDERED: predniSONE 20 MG TAB PO SCH (09:00)
[2019-08-31] MEDS ORDERED: ENOXAPARIN 40 MG/0.4 ML SYRINGE (J1650) SC SCH (09:00)
[2019-08-31] MEDS ORDERED: PANTOPRAZOLE 40MG INJ (PROTONIX) (C9113) IV SCH (09:00)
[2019-08-31 10:00] VITALS: BP 111/55
[2019-08-31] MEDS: HumaLOG INSULIN (NovoLOG) PER UNIT SC SCH ×2 (10:11→12:23)
[2019-08-31] MEDS ORDERED: PRED10TA2 PO ×2 (12:41→14:24)
[2019-08-31 14:00] VITALS: BP 110/50
[2019-08-31] MEDS ORDERED: NICOTINE 14 MG/24 HR TRANSDERMAL TD SCH (21:00)
[2019-09-01] MEDS ORDERED: FLUBLOK(EGG FREE)(QUAD)INFLUENZA VACC 0.5ML SYRINGE (90682)18YRS&OLDER IM ONE (09:00)
[2019-09-01] MEDS ORDERED: PREVNAR 13 VACCINE SYRINGE (CPT CODE:90670) IM ONE (09:00)
--- NOTE | 2019-09-01 21:35 | IPN ---
DATE: 08/31/2019 Patient denies fever or chills. Shortness of breath has improved, but not back to baseline. No chest pain, pressure, tightness, lightheadedness or dizziness. Patient is ambulating well around the room without any issues. No cough productive of sputum. CT chest: No pneumonia or pulmonary edema. Temperature 98.1, pulse 65, respiratory rate 20, blood pressure 101/53, 96% on 2 liters nasal cannula. GENERAL: Patient is awake, alert, oriented times three, answering questions appropriately. No conversational dyspnea. No cyanosis. No stridor on exam. No cervical lymphadenopathy or thyromegaly. No jugular venous distention. LUNGS: Diminished, but clear to auscultation. No wheezing or rales. HEART: S1, S2. Sinus rhythm. ABDOMEN: Soft, nontender, nondistended. EXTREMITIES: Have no cyanosis, clubbing or any pitting edema. IMAGING STUDIES: CT chest 08/30/2019: Moderate central lobular emphysema, pronounced in the upper lungs zones, bilateral calcified and noncalcified pleural plaques, most consistent with prior asbestos exposure, osteopenia. ASSESSMENT AND PLAN: This is a 69-year-old female actively smoking, history of chronic kidney disease (CKD) stage III, hypertension, diabetes, thyroid cancer, stage I endometrial cancer, presents with dyspnea with negative lower extremity Doppler for deep venous thrombosis (DVT) and no pulmonary embolism. Patient is currently on oral prednisone. IMPRESSION: 1. Acute hypoxic respiratory failure, most likely secondary to chronic obstructive pulmonary disease (COPD) exacerbation, which is stable. Patient is currently on 2 liters of oxygen. Will track pulse oximetry on ambulation. If greater than 88%, will discontinue oxygen. CT chest had no pulmonary embolism and venous Dopplers were negative for DVT. Patient no congestive heart failure (CHF) or pneumonia on the CT chest. 2. COPD with history of asbestos exposure. Still actively smoking. Tobacco cessation counseling has been provided. She is currently on oral prednisone, nebulizer treatments, supplemental oxygen. Discontinue oxygen if oxygen saturation is greater than 88%. 3. Type 2 diabetes. Patient metformin is held due to recent contrast study. Currently on sliding scale. Consistent carbohydrate diet with coverage. 4. History of extended-spectrum beta-lactamases (ESBL) Escherichia (E) coli urinary tract infection (UTI). Patient has slight white count. Repeat urinalysis (UA), urine culture and sensitivity (C and S). Currently asymptomatic. No dysuria, urgency or frequency. No fever or chills. 5. Reflux. Continue on prednisone. 6. Active tobacco use. Tobacco cessation counseling and nicotine patch.
--- NOTE | 2019-09-03 09:35 | DS.PDOC ---
Discharge Summary General Date of Admission Aug 30, 2019 at 18:40 Date of Discharge 08/31/19 Discharge Summary DISCHARGE DIAGNOSES: Acute hypoxic respiratory failure, most likely secondary to chronic obstructive pulmonary disease (COPD) exacerbation Acute COPD exacerbation history of asbestos exposure. Type 2 diabetes. History of extended-spectrum beta-lactamases (ESBL) Escherichia (E) coli urinary tract infection (UTI). Reflux. Active tobacco use. DISCHARGE MEDS: PLS SEE BELOW HOSPITAL COURSE: This is a 69-year-old female actively smoking, history of chronic kidney disease (CKD) stage III, hypertension, diabetes, thyroid cancer, stage I endometrial cancer, presents with dyspnea with negative lower extremity Doppler for deep venous thrombosis (DVT) and no pulmonary embolism. Patient is currently on oral prednisone. Acute hypoxic respiratory failure, most likely secondary to chronic obstructive pulmonary disease (COPD) exacerbation, which is stable. Patient is currently on 2 liters of oxygen. She had stable pulse oximetry on ambulation. CT chest had no pulmonary embolism and venous Dopplers were negative for DVT. Patient no congestive heart failure (CHF) or pneumonia on the CT chest. dc home . COPD with history of asbestos exposure. Still actively smoking. Tobacco cessation counseling has been provided. She is currently on oral prednisone, nebulizer treatments, supplemental oxygen. stable pulse ox on room air with ambulation. medically cleared for dc home. Type 2 diabetes. Patient metformin is held due to recent contrast study. Currently on sliding scale. Consistent carbohydrate diet with coverage. History of extended-spectrum beta-lactamases (ESBL) Escherichia (E) coli urinary tract infection (UTI). Patient has slight white count. Currently asymptomatic. No dysuria, urgency or frequency. No fever or chills. Reflux. Continue on prednisone. Active tobacco use. Tobacco cessation counseling and nicotine patch. DISCHARGE PHYSICAL EXAMINATION: VITALS: PLS SEE BELOW GENERAL: Patient is awake, alert, oriented times three, answering questions appropriately. No conversational dyspnea. No cyanosis. No stridor on exam. No cervical lymphadenopathy or thyromegaly. No jugular venous distention. LUNGS: Diminished, but clear to auscultation. No wheezing or rales. HEART: S1, S2. Sinus rhythm. ABDOMEN: Soft, nontender, nondistended. EXTREMITIES: Have no cyanosis, clubbing or any pitting edema. DISCHARGE LABS: PLS SEE BELOW MICROBIOLOGY: PLS SEE BELOW IMAGING STUDIES: CT chest 08/30/2019: Moderate central lobular emphysema, pronounced in the upper lungs zones, bilateral calcified and noncalcified pleural plaques, most consistent with prior asbestos exposure, osteopenia. TIME SPENT ON DISCHARGE: 30 MIN Vital Signs/I&Os Vital Signs Date Time Temp Pulse Resp B/P (MAP) Pulse Ox O2 Delivery O2 Flow Rate FiO2 08/31/19 14:00 98.4 85 19 110/50 (70) 94 Nasal Cannula 2.0 Microbiology Microbiology 08/31/19 Respiratory Virus Panel (PCR) ([facility]) - Final, Complete Discharge Medications Scheduled Cyanocobalamin (Vitamin B-12) (B-12) 1,000 Mcg Tablet, 1,000 MCG PO BID, (Reported) Folic Acid (Folic Acid) 1 Mg Tablet, 1 TAB PO DAILY Insulin Glargine,Hum.rec.anlog (Lantus Solostar) 100 Unit/1 Ml Insuln.pen, 20 UNITS SC QHS, (Reported) Insulin Glulisine (Apidra Solostar) 100 Unit/1 Ml Insuln.pen, 1 DOSE SC DAILY, (Reported) PER SLIDING SCALE AT LUNCHTIME Levothyroxine Sodium (Levothyroxine Sodium) 25 Mcg Tab, 25 MCG PO DAILY, (Reported) Lisinopril (Lisinopril) 10 Mg Tablet, 10 MG PO DAILY, (Reported) Metformin HCl (Metformin HCl) 500 Mg Tablet, 500 MG PO DAILY, (Reported) Pioglitazone HCl (Pioglitazone HCl) 15 Mg Tablet, 15 MG PO DAILY, (Reported) Potassium Chloride (Klor-Con M20) 20 Meq Tab.er.prt, 20 MEQ PO BID, (Reported) Prednisone (Prednisone) 10 Mg Tablet, 10 MG PO TAPER Take 4 tabs daily x 3 days, then 3 tabs daily x 3 days, then 2 tabs daily x 3 days, then 1 tab daily x 3 days and stop Pyridoxine HCl (Vitamin B6) (Vitamin B-6) 50 Mg Tablet, 1 TAB PO DAILY Simvastatin (Simvastatin) 10 Mg Tab, 10 MG PO QHS, (Reported) Scheduled PRN Topiramate (Topamax) 25 Mg Tablet, 25 MG PO BID PRN for MIGRAINE, (Reported) Allergies Coded Allergies: No Known Allergies (Unverified , 10/12/17) ROSMERY ABERNATHY MD Sep 03, 2019 09:35
== END 2019-08-31 14:43 | disposition home or self-care (01) | DRG 189 ==
LOC: M PCU 18:40 → M MSPAV 21:06
PROVIDERS: ADMIT Internal Medicine; ATTEND General Practice
DX: J96.01 Acute respiratory failure with hypoxia (principal); N39.0 Urinary tract infection, site not specified; J44.1 Chronic obstructive pulmonary disease with (acute) exacerbation; E11.22 Type 2 diabetes mellitus with diabetic chronic kidney disease; N18.3 Chronic kidney disease, stage 3 (moderate); E78.5 Hyperlipidemia, unspecified; I35.0 Nonrheumatic aortic (valve) stenosis; I12.9 Hypertensive chronic kidney disease with stage 1 through stage 4 chronic kidney disease, or unspecified chronic kidney disease; F17.210 Nicotine dependence, cigarettes, uncomplicated; B96.20 Unspecified Escherichia coli [E. coli] as the cause of diseases classified elsewhere; I71.4 Abdominal aortic aneurysm, without rupture; K21.9 Gastro-esophageal reflux disease without esophagitis; Z90.710 Acquired absence of both cervix and uterus; Z85.44 Personal history of malignant neoplasm of other female genital organs; Z79.4 Long term (current) use of insulin; Z79.899 Other long term (current) drug therapy; Z90.49 Acquired absence of other specified parts of digestive tract; Z85.850 Personal history of malignant neoplasm of thyroid; Z77.090 Contact with and (suspected) exposure to asbestos

== ENCOUNTER → 2021-08-11 | Outpatient (REF) | payer MEDICARE, BC ==
[~2021-08-11] MED LIST changes: +CREO3600 PO; +K-TA10TA2 PO; -KLOR20TA42 PO; +LISI10TA22 PO; -LISI10TA4 PO; +LISI20TA33 PO; +POTA-141 PO; +PRED10TA2 PO; +SERT50TA29 PO; +TRUL10IN SQ
== END ==
LOC: M LAB REF 12:40
PROVIDERS: ATTEND Nurse Practitioner Family
DX: E83.42 Hypomagnesemia (principal)

== ENCOUNTER → 2024-04-10 | Outpatient (CLI) | payer MEDICARE, BC ==
[~2024-04-10] MED LIST changes: +ALBU2.5V10 NEB; +ASPI1TAB22 PO; +ASPI81CH33 PO; +ATOR1TAB19 PO; +ATOR1TAB21 PO; +BAYE500T2 PO; +BENZ-18 PO; +GABA-1172; +GUAI600T12 PO; +HYDR12CA PO; +IPRA2IN INH; -K-TA10TA2 PO; +MELO7.5T35 PO; +METO1TAB7 PO; +POTA-165 PO; +POTA540T PO; +PRED5CON PO; +PREG25CA3 PO; +PULM0.25 NEB; +THERTAB52 PO; +TREL1AER PO
== END ==
LOC: M PLAIMG 09:44
PROVIDERS: ATTEND Internal Medicine Pulmonary Disease
DX: R91.8 Other nonspecific abnormal finding of lung field (principal); J43.9 Emphysema, unspecified

== ENCOUNTER → 2025-01-10 | Outpatient (CLI) | payer MEDICARE, BC ==
[~2025-01-10] MED LIST changes: +CREO3600; +GLIP-318 PO; -GLIP5TAB20 PO; -POTA540T PO; +POTA540T5 PO; +SERTRALINE; +TRUL0.5I
== END ==
LOC: M RAD 10:29
PROVIDERS: ATTEND Internal Medicine Medical Oncology
DX: R60.0 Localized edema (principal); D69.6 Thrombocytopenia, unspecified

== ENCOUNTER → 2025-03-06 | Outpatient (CLI) | payer MEDICARE, BC ==
[~2025-03-06] MED LIST changes: +HYDR12.510 PO; -HYDR12CA PO; +LIDOCAINE 1% MDV 20 ML VIAL SC ONE
[2025-03-06] MEDS: LIDOCAINE 1% MDV 20 ML VIAL SC ONE (12:10)
[2025-03-06 12:25] VITALS: TEMP 97
[2025-03-06 13:03] VITALS: BP 122/58; O2SAT 96
[2025-03-06 13:10] LABS: BASO # 0.0 10^3/uL (0.0-0.2); BASO % 0.4 % (0.0-1.0); EOS # 0.1 10^3/uL (0.0-0.5); EOS % 0.9 % (0.0-3.0); LYMPH # 1.9 10^3/uL (1.5-5.0); LYMPH % 28.7 % (24.0-44.0); MONO # 0.4 10^3/uL (0.0-0.8); MONO % 6.4 % (2.0-8.0); NEUTROPHILS # 4.3 10^3/uL (1.5-8.5); NEUTROPHILS % 63.3 % (36.0-66.0); PLATELET COUNT, AUTOMATED 100 10^3/uL (150-450)
== END ==
LOC: M IRPRO 12:20
PROVIDERS: ATTEND Internal Medicine Medical Oncology
DX: D64.9 Anemia, unspecified (principal); D69.6 Thrombocytopenia, unspecified

== ENCOUNTER → 2025-04-07 | Outpatient (CLI) | payer MEDICARE, BC ==
[~2025-04-07] MED LIST changes: +ISOVUE-370 76% 100 ML VIAL ONE; -LIDOCAINE 1% MDV 20 ML VIAL SC ONE
== END ==
LOC: M PLAIMG 13:12
PROVIDERS: ATTEND Internal Medicine Medical Oncology
DX: D64.9 Anemia, unspecified (principal); D69.6 Thrombocytopenia, unspecified
CPT/HCPCS: 74177; Q9967